=== PATIENT | male | born 1945 | race Caucasian/White ===

== ENCOUNTER 2017-06-09 13:21 | Day surgery (SDC) | payer MEDICARE ==
[2017-06-09] MEDS ORDERED: NS 1,000 ML IV ONE (13:27)
[2017-06-09] MEDS ORDERED: DIAZEPAM 5 MG TAB PO ONE (13:27)
[2017-06-09] MEDS ORDERED: ASPIRIN EC 325 MG TAB PO ONE (13:27)
[2017-06-09] MEDS ORDERED: FAMOTIDINE 20 MG TAB PO ONE (13:27)
[2017-06-09] MEDS ORDERED: diphenhydrAMINE 25 MG CAP PO ONE (13:27)
--- NOTE | 2017-06-09 13:54 | CPEKG ---
Heart Rate: 59 RR Interval: 1017 P-R Interval: 168 QRSD Interval: 114 QT Interval: 480 QTC Interval: 476 P [place]: 66 QRS [place]: 32 T Wave [place]: -87 EKG Severity - ABNORMAL ECG - EKG Impression: SINUS RHYTHM EKG Impression: INCOMPLETE RIGHT BUNDLE BRANCH BLOCK ,DIFFUSE ST ABNORMALITIES Electronically Signed By: Neville Julio 12-Jun-2017 08:26:53
[2017-06-09 14:12] LABS: % IMMATURE GRANULYOCYTES 0.3 % (0.0-1.1); ABSOLUTE IMMATURE GRANULOCYTES 0.01 10^3/uL (0.00-0.10); ADD DIFF? NO; ADD MORPH? NO; ADD SCAN? NO; ATYPICAL LYMPHOCYTE FLAG 10 (0-99); FRAGMENT RBC FLAG 0 (0-99); HEMATOCRIT 42.3 % (40.0-51.0); HEMOGLOBIN 14.9 g/dL (13.7-17.5); LEFT SHIFT FLG 0 (0-99); LIPEMIA HEMOLYSIS FLAG 90 (0-99); MEAN CELL HEMOGLOBIN 32.3 pg (27.9-34.1); MEAN CELL HEMOGLOBIN CONCENTR. 35.2 g/dL (32.4-36.7); MEAN CELL VOLUME 91.8 fL (81.5-99.8); MEAN PLATELET VOLUME 9.8 fL (8.7-11.7); PLATELET CLUMPS FLAG 0 (0-99); PLATELET COUNT 142 10^3/uL (150-400); RED BLOOD CELL COUNT 4.61 10^6/uL (4.40-6.38)
[2017-06-09] MEDS ORDERED: fentaNYL 100 MCG/2 ML INJ ONE (14:12)
[2017-06-09] MEDS ORDERED: LIDOCAINE 1% 300 MG/30 ML SDV ONE (14:12)
[2017-06-09] MEDS ORDERED: IOPAMIDOL (ISOVUE-370) 150 ML BTL IV ONE (14:13)
[2017-06-09] MEDS ORDERED: MIDAZOLAM 2 MG/2 ML VIAL ONE (14:13)
[2017-06-09] MEDS ORDERED: HEPARIN 10,000 UNIT/10 ML MDV ONE (14:13)
[2017-06-09] MEDS ORDERED: VERAPAMIL 5 MG/2 ML VIAL ONE (14:13)
[2017-06-09 14:28] LABS: INR 1.02 (0.83-1.16); PROTIME(PATIENT) 13.3 SEC (12.0-15.0)
[2017-06-09 14:29] LABS: ANION GAP 13 mEq/L (8-16); CALCIUM 9.4 mg/dL (8.5-10.4); CARBON DIOXIDE 24 mEq/l (22-31); CHLORIDE 104 mEq/L (97-110); CHOLESTEROL 208 mg/dL (140-220); CHOLESTEROL/HDL RATIO 5.07 RATIO (1.00-4.97); GLOMERULAR FILTRATION RATE > 60; GLUCOSE 90 mg/dL (70-100); HIGH DENSITY LIPOPROTEIN 41 mg/dL (40-65); LDL/HDL RATIO 2.93 RATIO (1.00-3.64); LOW DENSITY LIPOPROTEIN 120 mg/dL (80-100); MAGNESIUM 1.8 mg/dL (1.6-2.3); NON-HIGH DENSITY LIPOPROTEIN 167 mg/dL (90-129); POTASSIUM 4.1 mEq/L (3.5-5.2); SODIUM 141 mEq/L (134-144); TRIGLYCERIDE 235 mg/dL (40-150); VERY LOW DENSITY LIPOPROTEINS 47 mg/dL (8-25)
--- NOTE | 2017-06-09 15:53 | PDDXCAT ---
Diagnostic Cath Note - . Date: 06/09/17 [employer] Intern: Hugo Indication: other (1) Risk factors for CAD. 2) Declining exercise capacity.) - Procedure Access: right wrist - Materials Left Heart Cath size: 5F Left Heart Cath materials: other ([employer] and [employer]) - Findings-Left Heart Catheterization LM: Fluoroscopy reveals coronary calcification of the proximal left coronary system. No significant left main CAD. LAD: Mild irregularities involving the proximal to mid-LAD and proximal portions of two diagonal branches. Areas of stenosis up to 30-40%. LCX: Minimal irregularities. RCA: Minimal irregularities. EDP: 12 mmHg LVEF: 60% Wall motion: Normal Complications: None Closure method: TR Band Assessment: 1) Normal LV systolic function. 2) [id number] CAD as describerd above.
== END 2017-06-09 18:49 | disposition home or self-care (01) ==
LOC: FCATH 13:21
PROVIDERS: ATTEND Internal Medicine Interventional Cardiology
PROC: B2111ZZ Fluoroscopy of Multiple Coronary Arteries using Low Osmolar Contrast (ICD-10-PCS; principal; 2017-06-09)
PROC: 4A023N7 Measurement of Cardiac Sampling and Pressure, Left Heart, Percutaneous Approach (ICD-10-PCS; principal; 2017-06-09)
PROC: B2151ZZ Fluoroscopy of Left Heart using Low Osmolar Contrast (ICD-10-PCS; principal; 2017-06-09)
DX: R94.31 Abnormal electrocardiogram [ECG] [EKG] (principal); R06.02 Shortness of breath; E78.5 Hyperlipidemia, unspecified; G47.30 Sleep apnea, unspecified
CPT/HCPCS: 93005; 93458; C1769; J1644; J2250; J3010; Q9967